=== PATIENT | female | born 1990 | race African-American/Black ===

== ENCOUNTER 2019-04-01 22:54 | Emergency (ER) | payer OTHER ==
[2019-04-01] MEDS ORDERED: Promethazine HCl 25 MG/ML VIAL ONE (23:20)
[2019-04-02 00:01] LABS: #Eosinphils 0.2 thou/uL (0.0-0.7); #Lymphocytes 1.4 thou/uL (1.20-3.40); #Monocytes 0.2 thou/uL (0.11-0.59); #Neutrophils 4.1 thou/uL (1.40-6.50); %Basophils 0.4 % (0.0-1.0); %Eosinophils 2.6 % (0.0-10.0); %Lymphocytes 23.3 % (21.0-51.0); %Monocytes 3.8 % (0.0-10.0); Hemoglobin 9.3 g/dL (12.0-16.0); Mean Corpuscular HGB CONC 35.4 g/dL (32.0-36.0); Mean Corpuscular Volume 90.2 fL (78.0-98.0); Mean Platelet Volume 5.8 fL (7.4-10.4); Platelet Count 334 thou/uL (130-400); RBC Distribution Width 10.8 % (11.5-14.5); Red Blood Cell (RBC) Count 2.89 mill/uL (4.20-5.40); White Blood Cell (WBC) Count 5.9 thou/uL (4.8-10.8)
[2019-04-02 00:18] LABS: ALT (SGPT) 11 U/L (8-55); AST (SGOT) 18 U/L (5-34); Albumin 3.5 g/dL (3.5-5.0); Alkaline Phosphatase 61 U/L (40-150); Anion Gap 14 mmol/L (10-20); BUN (Urea Nitrogen) 10 mg/dL (7.0-18.7); Bilirubin, Total 0.2 mg/dL (0.2-1.2); Calc. Creatinine Clearance 0 mL/min (70-130); Calcium 8.8 mg/dL (7.8-10.44); Carbon Dioxide 17 mmol/L (22-29); Chloride 108 mmol/L (98-107); Estimated GFR-MDRD 58; Globulin 3.9 g/dL (2.4-3.5); Glucose 87 mg/dL (70-105); Lipase 31 U/L (8-78); Potassium 3.7 mmol/L (3.5-5.1); Protein, Total 7.4 g/dL (6.0-8.3); Sodium 135 mmol/L (136-145)
[2019-04-02 00:25] LABS: Bacteria/HPF 1+ HPF (None Seen); Bilirubin Negative (Negative); Blood, Urine Trace (Negative); Clarity Clear (Clear); Glucose, Urine (Dipstick) Normal (Negative); Leukocyte Negative Leu/uL (Negative); Nitrite Negative (Negative); Protein, Urine (Dipstick) 100 mg/dL (Neg-Trace); RBC/HPF 0-3 HPF (0-3); Urobilinogen Normal mg/dL (Less than 2)
[2019-04-02] MEDS ORDERED: Mag-Al 1200 mg/1200 mg/30 ML UDCUP ONE (00:43)
[2019-04-02] MEDS ORDERED: Lidocaine Viscous Sol 2% 15 ml UD Cup ONE (00:43)
[2019-04-02] MEDS ORDERED: Morphine 4 MG/ML VIAL ONE (01:29)
[2019-04-02] MEDS ORDERED: Ondansetron PF 4 MG/2 ML Vial ONE (01:30)
[2019-04-02] MEDS ORDERED: Pantoprazole 40 MG VIAL ONE (03:57)
[2019-04-02] MEDS ORDERED: Sucralfate 1 GM/10 ML UDCUP ONE (03:57)
[2019-04-02] MEDS ORDERED: Acetaminophen 500 MG TAB ONE (04:18)
--- NOTE | 2019-04-02 07:46 | ULT ---
PRELIMINARY REPORT/[facility]/EMERGENCY AFTER HOURS PROCEDURE: EXAM: US , Limited EXAM DATE/TIME: 04/02/2019 2:10 AM CLINICAL HISTORY: 28 years old, female; Other: Luq pain; Gestational age or lmp: Lmp 01/03/19; ; Patient HX: PT w ith h/o lupus, HTN. 28 y/o F, , presents to ED C/O sudden onset of abd pain at approx 2000 this evening. PT reports onset of vomiting following abd pain tonight, though notes n/v intermittently dur ing this . Denies diarrhea, vaginal bleeding, chills, dysuria. PT has established ob care, currently gravid x 13 weeks. Most recent US x 4 weeks ago. No complications with prior . She is currently visiting the [facility] area for the holiday weekend. TECHNIQUE: Imaging protocol: Real-time ultrasound of the maternal uterus with image documentation. Exam focused on the clinical indication. COMPARISON: No relevant prior studies available. FINDINGS: GESTATION: Gestation: Single live intrauterine gestation. Heart rate: heart rate 162 beats per minute. Placenta: Placenta is posterior and unremarkable. BIOMETRY: Estimated gestational age: biometry measurements are compatible with estimated gestational age of 13 weeks 5 days. MATERNAL: Uterus: There are 2 uterine fibroids, the larger of which measures 2.7 cm. Right adnexa: Right ovary not visualized. Free fluid in the posterior pelvic cul-de-sac and right adnexa. Left adnexa: Normal left ovary with normal Doppler signal. IMPRESSION: 1. Single live intrauterine gestation as above. 2. There are 2 uterine fibroids, the larger of which measures 2.7 cm. Thank you for allowing us to participate in the care of your patient. Dictated and Authenticated by: Chapincito Christie MD 04/02/2019 3:17 AM Central Time ([place] & [place]) FINAL REPORT Exam: ULTRASOUND LESS THAN 14 WEEKS: Single IUP. heart rate 162 bpm. Posterior placenta. Two intrauterine fibroids up to 2.7 cm. Ri ght ovary is not demonstrated. Gestational age average 13 weeks 5 days. EDC 10/03/2019. This report is in agreement with the preliminary report. Transcribed Date/Time: 04/02/2019 8:03 AM
== END 2019-04-02 04:22 | disposition home or self-care (01) ==
LOC: ERS 22:54
DX: O99.611 Diseases of the digestive system complicating pregnancy, first trimester (principal); K21.9 Gastro-esophageal reflux disease without esophagitis; O10.911 Unspecified pre-existing hypertension complicating pregnancy, first trimester; Z3A.13 13 weeks gestation of pregnancy; Z79.899 Other long term (current) drug therapy
CPT/HCPCS: 36415; 76805; 80053; 81003; 81015; 83690; 85025; 96361; 96365; 96375; C9113; J2270; J2405; J2550